=== PATIENT | male | born 1995 | race African-American/Black ===

== ENCOUNTER 2020-08-12 23:01 | Emergency (ER) | payer SELFPAY ==
--- NOTE | ~2020-08-12 | US_ITS ---
EXAMINATION: US scrotum doppler DATE: 08/13/2020 00:43 INDICATION: Right testicular pain and swelling. TECHNIQUE: Grayscale and Doppler ultrasound images of the testes were obtained. COMPARISON: None. FINDINGS: The right testis measures 4.3 x 2.2 x 3.0 cm . The left testis measures 4.3 x 2.0 x 3.2 cm. There is normal vascular flow to both testes. The right epididymis is normal. The left epididymis is normal. There are small bilateral hydroceles. IMPRESSION: 1. Small bilateral hydroceles. Reviewed, dictated and finalized at location A.
[2020-08-12 23:10] VITALS: BP 136/91; PULSE 80; RESP 20; TEMP 36.9; O2SAT 98
--- NOTE | 2020-08-12 23:51 | ED.MALEGU ---
HPI - Male Genitourinary General Chief complaint: Urogenital-Male Stated complaint: scrotum hurting Time Seen by Provider: 08/12/20 23:40 History of Present Illness HPI Narrative: Pt c/o right testicle pain and swelling, started this morning. Denies any injury. Denies any urinary symptoms. Related Data Allergies Allergy/AdvReac Type Severity Reaction Status Date / Time No Known Allergies Allergy Unverified 05/07/19 06:57 Review of Systems Review of Systems: All systems reviewed & are unremarkable except as noted in HPI and below Constitutional: Constitutional: Denies body ache(s), Denies chills, Denies excessive sweating, Denies fatigue, Denies fever(s), Denies headache(s), Denies lethargy, Denies malaise, Denies weakness and Denies weight loss Eyes: Eyes: Denies blurry vision, Denies change in vision and Denies loss of vision ENT: Denies dizziness, Denies ear discharge, Denies headache(s), Denies lip swelling, Denies epistaxis, Denies nasal congestion, Denies neck pain, Denies throat swelling and Denies tongue swelling Cardiovascular: Cardiovascular: Denies chest pain, Denies chest pain at rest, Denies chest pain with activity, Denies diaphoresis, Denies rapid heart rate, Denies edema, Denies irregular heart rhythm, Denies lightheadedness, Denies palpitations, Denies dyspnea and Denies dyspnea on exertion Respiratory: Respiratory: Denies chest congestion, Denies cough, Denies hemoptysis, Denies dyspnea and Denies dyspnea on exertion Gastrointestinal: Gastrointestinal: Denies abdominal pain, Denies melena, Denies hematochezia, Denies diarrhea, Denies nausea, Denies vomiting and Denies hematemesis Musculoskeletal: Musculoskeletal: Denies abnormal gait, Denies deformity, Denies joint swelling, Denies limited range of motion, Denies neck pain and Denies numbness Neurologic: Denies Abnormal speech present, Denies abnormal gait, Denies confusion, Denies dizziness, Denies headache(s), Denies focal weakness, Denies loss of vision, Denies numbness, Denies Other visual disturbances, Denies Sensory deficit (Neuro) and Denies weakness Psychiatric: Psychiatric: Denies confusion, Denies depression, Denies auditory hallucinations, Denies homicidal ideation and Denies suicidal ideation Endocrine: Endocrine: Denies cold intolerance, Denies excessive sweating, Denies fatigue, Denies heat intolerance and Denies palpitations Hematologic/Lymphatic: Hematologic/Lymphatic: Denies easy bleeding and Denies easy bruising Allergic/Immunologic: Allergic/Immunologic: Denies lip swelling, Denies throat swelling and Denies tongue swelling [facility] Social History Social History Gender identity (if verbalized by the patient): Male Exam Const: General: cooperative, healthy appearing, comfortable, no acute distress, well developed, alert and awake; No confusion Orientation/consciousness: oriented to person, oriented to place, oriented to time, patient oriented x3 and No confusion Limitations: no limitations HENMT: Head: normal to inspection, normocephalic and atraumatic Ears: hearing grossly normal bilaterally, TM normal on the right and TM normal on the left General nose exam: Normal external nose present, Normal nares present and No nasal discharge present Face and sinus: normal facial exam Mouth: Yes Normal oral and palatal mucosa present, Yes lip normal, Yes tongue normal and Yes oropharynx normal Throat: posterior oropharynx normal, tonsils normal and uvula midline Eyes: General: appearance normal, both eyes and all related structures Pupils: Equal, round and reactive pupils present EOM: EOMs intact bilaterally Neck: Neck: normal visual inspection, full ROM, no lymphadenopathy and no meningeal signs Chest: Chest palpation & inspection: normal inspection of the chest Resp: Effort & Inspection: normal respiratory effort, able to speak in complete sentences, no respiratory distress and not tachypneic Auscultation: clear to auscultation bilaterally,
[2020-08-13] MEDS: IBUPROFEN 600 MG TABLET PO (00:05)
[2020-08-13 01:29] LABS: Add Urine Microscopic? NO; Appearance Urine Clear (Clear); Bilirubin Urine Negative (Negative); Blood Urine Negative (Negative); Color Urine Straw (Yellow); Glucose Urine UA Negative (Negative); Ketones Urine Negative (Negative); Leukocyte Esterase Ur Negative LEU/UL (Negative); Mucus Urine Rare /lpf; Nitrate Urine Negative (Negative); Protein Urine Negative (Negative); RBC Urine 0-2 /hpf (0-2); Squamous Epithelial Cell Urine Rare /hpf (Few); Urobilinogen Urine Negative mg/dL (<2.0); WBC Urine 0-3 /hpf
[2020-08-13 01:43] VITALS: BP 136/87; PULSE 78; RESP 18; TEMP 36.7; O2SAT 97
== END 2020-08-13 01:43 | disposition home or self-care (01) ==
PROVIDERS: Emergency Provider Emergency Medicine
DX: N50.811 Right testicular pain (principal); I86.1 Scrotal varices
CPT/HCPCS: 76870; 81003; 93976; 99284; A9270

== ENCOUNTER 2021-04-05 18:54 | Emergency (ER) | payer SELFPAY ==
--- NOTE | ~2021-04-05 | CT_ITS ---
EXAMINATION: CTA chest PE protocol EXAM DATE: 04/05/2021 21:24 INDICATION: Central chest pain, cough. TECHNIQUE: Spiral CTA of the chest (pulmonary arteries) was performed with 100 cc Omnipaque 350 intr avenous contrast injection. Images were acquired during the pulmonary arterial phase. Coronal maxi mum intensity projection 3D-reconstructions were created by the technologist on dedicated workstation . Axial, coronal and sagittal reformatted images were reviewed. The dose-length product (DLP) for t his examination was 185.82 mGy-cm. The exposure was tailored according to patient size (auto mA exp osure control), and iterative reconstruction (ASIR) was used as additional dose reduction technique. There is no prior study for comparison. FINDINGS: Pulmonary arteries are well opacified and without intraluminal filling defects. No thora cic aortic dissection. There is pneumomediastinum from the celine level to the diaphragm, around the celine and distal aspect of the esophagus. Etiology uncertain. The lungs are clear. There are no pl eural or pericardial effusions. Tracheobronchial tree is patent. There is no mediastinal, hilar o r axillary lymphadenopathy. There is no pneumothorax. Heart normal in size. No evidence of jasmin nary arterial calcification. Upper abdomen is unremarkable. There is thoracic spondylosis without osteoblastic or osteolytic lesions identified. IMPRESSION: 1. Small to moderate amount of pneumomediastinum around celine and distal aspect of esophagus. Could be from spontaneous alveolar rupture from coughing. Other causes not excludable. Please clinically c orrelate. 2. No pulmonary emboli. Clear lungs. Reviewed, dictated and finalized at location G. IMPRESSION: 1. Small to moderate amount of pneumomediastinum around celine and distal aspe ct of esophagus. Could be from spontaneous alveolar rupture from coughing. Othe r causes not excludable. Please clinically correlate. 2. No pulmonary emboli. Clear lungs.
--- NOTE | ~2021-04-05 | XR_ITS ---
EXAMINATION: XR chest 2V EXAM DATE: 04/05/2021 19:14 INDICATION: Sternal chest pain radiating to left side since 3 p.m. TECHNIQUE: Frontal and lateral projections of the chest obtained and reviewed. There is no prior luis dy for comparison. FINDINGS: The lungs are clear. There are no pleural effusions. The cardiomediastinal silhouette is within normal limits. There is no pneumothorax suspected. The bones and soft tissues are unremarkab le. IMPRESSION: Unremarkable chest x-ray exam. Reviewed, dictated and finalized at location A.
[2021-04-05 18:56] VITALS: BP 144/87; PULSE 101; RESP 20; TEMP 37.1; O2SAT 100
--- NOTE | 2021-04-05 18:57 | ECG_ITS ---
Measurements Intervals [place] Rate: 103 P: 84 [place]: 144 QRS: 84 QRSD: 88 T: 67 QT: 321 QTc: 421 Interpretive Statements SINUS TACHYCARDIA BASELINE ARTIFACT- V5-V6 BORDERLINE ECG Electronically Signed On 04-05-2021 19:22:59 CDT by Curry Shaw D.O.
[2021-04-05 19:07] LABS: Basophils Absolute Auto 0.1 K/mm3 (0.0-0.1); Basophils Percent Auto 0.5 % (0.2-1.2); Eosinophils Absolute Auto 0.6 K/mm3 (0-0.3); Eosinophils Percent Auto 3.6 % (0-4.4); Hematocrit 44.4 % (42.0-52.0); Hemoglobin 15.3 g/dL (14.0-18.0); Immature Granulocyte Absolute 0.06 K/mm3 (0.00-0.031); Immature Granulocyte Percent A 0.4 % (0-0.5); Lymphocytes Absolute Auto 2.07 K/mm3 (0.9-3.2); Lymphocytes Percent Auto 12.1 % (18.3-44.2); Mean Corpuscular HGB Conc 34.5 g/dl (32-36); Mean Corpuscular Hemoglobin 30.2 pg (26-34); Mean Corpuscular Volume 87.7 fl (80-100); Monocytes Absolute Auto 1.3 K/mm3 (0.1-0.6); Monocytes Percent Auto 7.4 % (2.6-8.5); Platelet Count Result 338 k/mm3 (150-375); Red Blood Count 5.06 M/mm3 (4.6-6.20); Red Cell Distribution Width 12.5 % (11.5-14.5); White Blood Count 17.1 K/mm3 (4.5-10.0)
[2021-04-05 19:16] LABS: INR 0.9
[2021-04-05 19:19] LABS: Anion Gap 4 mmol/L (8-16); Blood Urea Nitrogen 9 mg/dL (9-20); Calcium 9.2 mg/dL (8.4-10.2); Carbon Dioxide 31 mmol/L (22-30); Chloride 100 mmol/L (98-107); Estimated CRCL calculation 113 ml/min; Estimated Glomerular Filt Rate > 60; Glucose 118 mg/dL (75-110); Potassium 3.7 mmol/L (3.4-5.0); Sodium 135 mmol/L (137-145)
[2021-04-05 19:30] LABS: Troponin I < 0.012 ng/mL (0.000-0.034)
[2021-04-05 20:41] VITALS: BP 157/94; PULSE 90; RESP 22; O2SAT 97
[2021-04-05] MEDS: ASPIRIN 81 MG CHEWABLE TABLET 324 MG PO (20:41)
--- NOTE | 2021-04-05 20:52 | ED.GENADULT ---
HPI - General Adult General Chief complaint: Chest Pain Stated complaint: chest pain Time Seen by Provider: 04/05/21 20:44 History of Present Illness HPI narrative: Patient was 25-year-old gentleman who presents the emergency department with chief complaint of chest pain. Patient reports he was at work and changing a tire and was lifting a tire and suddenly felt pain in his chest. The patient states the pain is sharp states is worse with inspiration and worse with movement. Patient states that it is not reproducible whenever his chest is palpated the patient states that it is making him breathe faster than normal the patient states that he has no prior history of cardiac disease no prior history of thromboembolic disease in the past Related Data Allergies Allergy/AdvReac Type Severity Reaction Status Date / Time No Known Allergies Allergy Verified 04/05/21 20:43 Review of Systems Review of Systems: Narrative: A 10 system review of systems was completed on the patient and is negative except for what is stated in the HPI. Nursing and ancillary documentation was reviewed. [facility] Social History Social History Gender identity (if verbalized by the patient): Male Comments Patient denies past medical history Social history the patient reports to occasionally smoking cigarettes Exam Narrative: Exam Narrative: GENERAL: Well-appearing, well-nourished, and in mild pain distress. HEAD: Normocephalic, atraumatic. EYES: PERRLA and EOMI. ENT: Nares clear, no rhinorrhea or epistaxis. Mucous membranes moist. NECK: Supple. CHEST: Clear to auscultation. No respiratory distress, the patient does have increased respiratory drive. HEART: Regular rate and rhythm. No murmur heard. Normal peripheral pulses. ABDOMEN: Soft, nontender, nondistended, normal active bowel sounds. EXTREMITIES: Normal range of motion. No edema. SKIN: Warm, dry, no rash. NEURO: No focal deficits. Alert and oriented x3. PSYCH: Normal mood and affect. Course Course Emergency Course: CT scan shows evidence of pneumomediastinum. The patient's pain was treated with IV Dilaudid the patient received blood cultures and was given a dose of IV vancomycin and a dose of IV Zosyn in the ER. Case was discussed with the cardiothoracic surgeon at [facility] who reviewed the imaging. Given the history that is felt this is not a Boerhaave's type situation and felt this is more consistent with a topical. In this situation the patient may be managed symptomatically with pain control and followed as an outpatient by his primary care physician Vital Signs Vital signs: Vital Signs Temperature 37.1 C 04/05/21 18:56 Pulse Rate 101 H 04/05/21 18:56 Respiratory Rate 20 04/05/21 18:56 Blood Pressure 144/87 H 04/05/21 18:56 Pulse Oximetry 100 04/05/21 18:56 Temperature 37.1 C 04/05/21 18:56 Pulse Rate 92 04/05/21 22:34 Respiratory Rate 16 04/05/21 22:34 Blood Pressure 126/72 04/05/21 22:34 Pulse Oximetry 95 04/05/21 22:35 Medical Decision Making Vital Signs Vital Signs: Vital Signs Temperature 37.1 C 04/05/21 18:56 Pulse Rate 101 H 04/05/21 18:56 Respiratory Rate 20 04/05/21 18:56 Blood Pressure 144/87 H 04/05/21 18:56 Pulse Oximetry 100 04/05/21 18:56 Temperature 37.1 C 04/05/21 18:56 Pulse Rate 92 04/05/21 22:34 Respiratory Rate 16 04/05/21 22:34 Blood Pressure 126/72 04/05/21 22:34 Pulse Oximetry 95 04/05/21 22:35 Lab Data Result diagrams: 04/05/21 19:02 04/05/21 19:02 Labs: Lab Results 04/05/21 04/05/21 04/05/21 Range/Units 19:02 19:02 19:02 WBC 17.1 H (4.5-10.0) K/mm3 RBC 5.06 (4.6-6.20) M/mm3 Hgb 15.3 (14.0-18.0) g/dL Hct 44.4 (42.0-52.0) % MCV 87.7 (80-100) fl MCH 30.2 (26-34) pg MCHC 34.5 (32-36) g/dl RDW 12.5 (11.5-14.5) % Plt Count 338 (150-375) k/mm3 MPV 9.0 (7.4-10.4) fl Immature Gran % (Auto) 0.4
[2021-04-05] MEDS: KETOROLAC 30 MG/ML VIAL (*BKC) IV PUSH (21:07)
--- NOTE | 2021-04-05 21:16 | PC.NURSE ---
Patient in CT.
[2021-04-05] MEDS: HYDROmorphone HCL INJ (*CRX) 1 MG/ML SYR IV PUSH (22:28)
[2021-04-05 22:34] VITALS: BP 126/72; PULSE 92; RESP 16; O2SAT 95
[2021-04-05 22:35] VITALS: O2SAT 95
[2021-04-05 22:46] LABS: Troponin I < 0.012 ng/mL (0.000-0.034)
[2021-04-06 01:01] VITALS: BP 130/70; PULSE 77; RESP 18; O2SAT 96
== END 2021-04-06 01:05 | disposition home or self-care (01) ==
PROVIDERS: Emergency Medicine; Emergency Provider Emergency Medicine
DX: J98.2 Interstitial emphysema (principal); R07.9 Chest pain, unspecified; F17.210 Nicotine dependence, cigarettes, uncomplicated; R00.0 Tachycardia, unspecified
CPT/HCPCS: 36415; 71046; 71275; 80048; 84484; 85025; 85610; 85730; 87040; 93005; 96365; 96367; 96375; 99284; A9270; J1170; J1885; J2543; J3370; Q9967

== ENCOUNTER 2022-04-18 19:30 | Emergency (ER) | payer SELFPAY ==
--- NOTE | 2022-04-18 19:30 | ED.MALEGU ---
HPI - Male Genitourinary General Chief complaint: Urogenital-Male Stated complaint: std check Time Seen by Provider: 04/18/22 19:30 Source: patient Mode of arrival: ambulatory Limitations: no limitations History of Present Illness HPI Narrative: Mr. Lopez is a 26-year-old male patient presenting to the clinic today for STD testing. He reports that he has had possible exposure to someone with chlamydia as his partner was contacted yesterday stating that she was exposed to chlamydia. He denies any urinary symptoms or penile discharge Related Data Allergies Allergy/AdvReac Type Severity Reaction Status Date / Time No Known Allergies Allergy Verified 04/18/22 19:43 Review of Systems Review of Systems: Pertinent positives per HPI. Patient denies any fever, chills, rash, headache, visual changes, dizziness, cough, runny nose, sore throat, shortness of breath, chest pain, palpitations, nausea, vomiting, diarrhea, constipation, abdominal pain, or any urinary issues. [facility] Social History Social History Gender identity (if verbalized by the patient): Male Comments At the time of my signature, I reviewed and agree with the nursing past medical, surgical, social, and family history. There is no relevant family history pertinent to the patient complaint. Exam Narrative: General: Well-developed, well nourished, in no apparent distress Head: Normocephalic, atraumatic. Cardio: Regular rate and rhythm, s1 and s2 normal, no murmur appreciated. Resp: Clear to auscultation bilaterally, no rhonchi, rales, wheezing or rubs. Abdomen: Soft, pliable, bowel sounds present in all quadrants, non-tender to palpation, no CVAT tenderness. : Deferred Course Course Emergency Course: Portions of this record may have been created with voice recognition software. Level of Care: Express Care Visit Vital Signs Vital signs: Vital signs reviewed MDM - Male Genitourinary MDM Narrative Medical decision making narrative: At the time of assessment patient is resting comfortably on the exam table. Anticipatory guidance given and Rocephin 500 mg IM given in the clinic today. Discussed taking Doxy and a dirty urine was sent for testing for chlamydia, gonorrhea, and trichomonas. Patient voiced understanding of discharge instructions and agrees to the treatment plan. Differential Diagnosis Differential diagnosis: Likely urethritis and other (STD exposure) Discharge Plan Discharge Clinical Impression: Exposure to chlamydia Patient Disposition: Home, Self-Care Condition: Stable Instructions: Antibiotic Form, Sexually Transmitted Diseases (ED) Additional Instructions: Rocephin 500 mg IM given in the clinic today Take doxycycline as prescribed We have tested/treated you for STIs in the clinic today. Avoid any sexual activity- includes oral, anal, or vaginal intercourse until you get results back and have completed any additional recommended treatment regimens. Results typically can take 7-10 days to come back. Occasionally it may be longer depending on [facility] labs as this testing is shipped out of state. May call [facility] location that you had testing completed for results in that time frame. We will contact you if testing is positive and make sure your treatment was appropriate for the type of STI. If blood testing was ordered we will contact you with results and any further recommendation after they are reviewed by provider. If symptoms worsen after treatment recommend reevaluation with your PCP or [facility]. Prescriptions: New doxycycline monohydrate 100 mg capsule 100 mg PO BID 7 Days Qty: 14 0RF Follow-up/Referrals: UNKNOWN,DOCTOR [Non-Staff] - Time of Disposition: 19:51 Quality NIHSS Nursing Documentation ED NIHSS nursing documentation: reviewed/agree
[2022-04-18 19:35] VITALS: BP 135/79; PULSE 101; RESP 14; TEMP 37.3; O2SAT 97
== END 2022-04-18 20:25 | disposition home or self-care (01) ==
LOC: EXPBETH 19:33
PROVIDERS: Emergency Provider Nurse Practitioner Family
DX: Z20.2 Contact with and (suspected) exposure to infections with a predominantly sexual mode of transmission (principal)
CPT/HCPCS: 87491; 87591; 87661; 99213; G0463; J0696

== ENCOUNTER 2022-05-05 13:53 | Emergency (ER) | payer SELFPAY ==
[2022-05-05 14:07] VITALS: BP 119/49; PULSE 70; RESP 16; TEMP 36.8; O2SAT 98
--- NOTE | 2022-05-05 15:13 | ED.URI ---
HPI - URI/Sore Throat General Chief Complaint: Fever Stated Complaint: Fever Time Seen by Provider: 05/05/22 15:13 Source: patient, RN notes reviewed and old records reviewed Mode of arrival: ambulatory Limitations: no limitations History of Present Illness HPI Narrative: 26 year old male who presents to [facility] care with complaints of 2 day history of weakness with headache, chills and fever up to 101F. Patient reports that he has been taking Tylenol for his discomfort. Patient reports that he has no cough, no sore throat or any ear pain, denies any nasal drainage. Patient denies any abdominal pain or any nausea or vomiting. Patient has not had COVID or influenza shot. Patient reports that he does work in the [place]. MD elicited complaint: fever and other (headache) Treatments prior to arrival: acetaminophen Related Data Home Medications Medication Instructions Recorded Confirmed No Home Medications 05/05/22 05/05/22 Allergies Allergy/AdvReac Type Severity Reaction Status Date / Time No Known Allergies Allergy Verified 05/05/22 14:28 Review of Systems Review of Systems: CONSTITUTIONAL: Positive fevers, chills, or sweats. EYES: Denies visual changes, redness, or discharge. ENT: Denies rhinorrhea, congestion, sore throat, or otalgia. CARDIOVASCULAR: Denies chest pain, palpitations, or edema. RESPIRATORY: Denies cough or dyspnea. GASTROINTESTINAL: Denies abdominal pain, nausea, vomiting, or diarrhea. GENITOURINARY: Denies dysuria or hematuria. SKIN: Denies rash or itching. MUSCULOSKELETAL: Denies back pain, joint pain, or myalgia. NEUROLOGIC: Positive headache, no numbness, positive feelings of weakness. PSYCHIATRIC: Positive history anxiety or depression. [facility] Past Medical History Medical History (Updated 05/07/22 @ 16:14 by Diane Loja NP) Anxiety Surgical History Surgical History (Updated 05/07/22 @ 16:14 by Diane Loja NP) No history of previous surgery Social History Social History (Updated 05/07/22 @ 16:16 by Diane Loja NP) Smoking packs per day: 0.25 Smoking cigarettes per day: 5.0 Years smoked: 18 Smoking pack-years: 4.50 Smoking status: Current every day smoker Tobacco type: cigarettes Alcohol intake: current Alcohol use details: social Substance use type: does not use Living arrangements: with family Gender identity (if verbalized by the patient): Male Comments At time of signature, agree with nursing past medical, surgical, social and family history. There is no relevant family history pertinent to the presenting complaint Exam Narrative: GENERAL: Well-appearing, well-nourished, and in no acute distress. HEAD: Normocephalic, atraumatic. EYES: PERRLA and EOMI. ENT: Nares clear, no rhinorrhea or epistaxis. Mucous membranes moist.TM's normal with good light reflex, throat pink with no lesions or exudates, no tonsil swelling, some post nasal drainage. NECK: Supple.no lymphadenopathy CHEST: Clear to auscultation. No respiratory distress.SAO2 98% on room air HEART: Regular rate and rhythm. No murmur heard. Normal peripheral pulses. ABDOMEN: Soft, nontender, nondistended, normal active bowel sounds. EXTREMITIES: Normal range of motion. No edema. SKIN: Warm, dry, no rash. NEURO: No focal deficits. Alert and oriented x3.headache discomfort reported Course Course Level of Care: Express Care Visit Vital Signs Vital signs: Vital Signs Temperature 36.8 C 05/05/22 14:07 Pulse Rate 70 05/05/22 14:07 Respiratory Rate 16 05/05/22 14:07 Blood Pressure 119/49 L 05/05/22 14:07 Pulse Oximetry 98 05/05/22 14:07 Oxygen Delivery Room Air 05/05/22 14:07 Temperature 36.8 C 05/05/22 14:07 Pulse Rate 70 05/05/22 14:07 Respiratory Rate 16 05/05/22 14:07 Blood Pressure 119/49 L 05/05/22 14:07 Pulse Oximetry 98 05/05/22 14:07 Oxygen Delivery Room Air 05/05/22 14:07 MDM - URI/Sore Throat Differential Diagnosis Diffe
== END 2022-05-05 15:34 | disposition home or self-care (01) ==
PROVIDERS: Emergency Provider Registered Nurse
DX: B34.9 Viral infection, unspecified (principal); R51.9 Headache, unspecified; Z20.822 Contact with and (suspected) exposure to COVID-19; F17.210 Nicotine dependence, cigarettes, uncomplicated
CPT/HCPCS: 81003; 87426; 87804; 99213; C9803; G0463